=== PATIENT | male | born 1975 | race Caucasian/White ===

== ENCOUNTER 2018-01-04 22:40 | Emergency (ER) | payer MEDICAID ==
[~2018-01-04] VITALS: Ht 172.7 cm; Wt 91.6 kg
[~2018-01-04 22:40] MED LIST: DICL50TA4 PO; METF-370 PO; TRAM50TA2 PO
[2018-01-04 23:17] LABS: Basophils # (auto) 0 uL; Basophils % (auto) 0.2 % (0.0-2.0); Eosinophils # (auto) 0 uL; Eosinophils % (auto) 0.4 % (0.0-7.0); Hematocrit 45.3 % (41.0-53.0); Hemoglobin 15.7 g/dL (13.5-17.5); Lymphocytes # (auto) 0.9 uL; Lymphocytes % (auto) 9.2 % (10.0-50.0); Mean Corpuscular Hgb Conc. 34.6 g/dL (32.0-36.0); Mean Corpuscular Volume 89.8 fL (80.0-100.0); Monocytes # (auto) 0.6 uL; Monocytes % (auto) 5.6 % (0.0-12.0); Neutrophils # (auto) 8.2 uL; Neutrophils % (auto) 84.6 % (37.0-80.0); Nucleated Red Blood Cells % 0.1 %; Platelet Count (auto) 288 10^3/uL (140-450); Red Blood Cells 5.05 10^6/uL (4.5-5.90); Red Cell Distribution Width 13.7 % (11.8-14.3); White Blood Cell 9.8 10^3/uL (4.4-10.8)
[2018-01-04 23:48] LABS: Alanine Aminotransferase 20 U/L (16-61); Albumin 3.7 g/dL (3.4-5.0); Alkaline Phosphatase 82 U/L (45-117); Anion Gap 10 (5-15); Aspartate Aminotransferase 16 U/L (15-37); BUN/Creatinine Ratio 24.1; Bilirubin, Total 0.5 mg/dL (0.2-1.0); Blood Urea Nitrogen 21 mg/dL (7-18); Calcium 8.1 mg/dL (8.5-10.1); Carbon Dioxide 20 mmol/L (21-32); Chloride 103 mmol/L (98-107); GFR African American 123 mL/min; GFR Non-African American 101 mL/min; Glucose 191 mg/dL (74-106); Potassium 3.9 mmol/L (3.5-5.1); Sodium 133 mmol/L (136-145); Total Protein 7.5 g/dL (6.4-8.2)
[2018-01-05] MEDS ORDERED: HYDROcodone-ACET 10/325MG TAB PO ONE ×2 (01:15→04:00)
[2018-01-05] MEDS ORDERED: MORPHINE SULFATE 10 MG/ML INJ 1ML SDV IM ONE (01:45)
[2018-01-05 01:59] LABS: INR 0.92 (0.9-1.15); Partial Thromboplastin Time 27.3 sec (22.64-33.71)
[2018-01-05] MEDS ORDERED: MORPHINE SULFATE 4 MG/ML SYR/VIAL ONE (02:03)
[2018-01-05 04:56] VITALS: BP 125/78
== END 2018-01-05 05:54 | disposition home or self-care (01) ==
LOC: ER 22:40 → EDBD 22:40 → ER 01-05 05:54
DX: S06.9X0A Unspecified intracranial injury without loss of consciousness, initial encounter (principal); G44.319 Acute post-traumatic headache, not intractable; E11.9 Type 2 diabetes mellitus without complications; R07.9 Chest pain, unspecified; R51 Headache; X58.XXXA Exposure to other specified factors, initial encounter; Y93.89 Activity, other specified; Y92.89 Other specified places as the place of occurrence of the external cause; Y99.8 Other external cause status
CPT/HCPCS: 36415; 70450; 71045; 80053; 83735; 83880; 84484; 85025; 85610; 85730; 93005; 94761; 96372; 99285; J2270

== ENCOUNTER 2021-12-01 11:06 | Emergency (ER) | payer SELFPAY ==
[~2021-12-01] VITALS: Ht 180.3 cm; Wt 90.7 kg
[2021-12-01] MEDS ORDERED: ONDANSETRON HCL 4 MG/2 ML VIAL IV ONE (12:45)
[2021-12-01] MEDS ORDERED: HYDROmorphone HCL 2 MG/ML VL IV ONE (12:45)
[2021-12-01 18:14] VITALS: BP 144/87
[2021-12-01] MEDS ORDERED: PERCOT PO (18:17)
== END 2021-12-01 18:13 | disposition home or self-care (01) ==
LOC: EDBD 11:06 → ER 11:06
DX: S46.912A Strain of unspecified muscle, fascia and tendon at shoulder and upper arm level, left arm, initial encounter (principal); E11.9 Type 2 diabetes mellitus without complications; F12.10 Cannabis abuse, uncomplicated; Z88.0 Allergy status to penicillin; Z88.8 Allergy status to other drugs, medicaments and biological substances; V43.52XA Car driver injured in collision with other type car in traffic accident, initial encounter; Y93.89 Activity, other specified; Y92.89 Other specified places as the place of occurrence of the external cause; Y99.8 Other external cause status
CPT/HCPCS: 70450; 73030; 73060; 73090; 73110; 96374; 96375; 99284; J1170; J2405

== ENCOUNTER 2024-06-16 17:35 | Emergency (ER) | payer OTHER ==
[~2024-06-16] VITALS: Ht 180.3 cm; Wt 91.8 kg
[~2024-06-16 17:35] MED LIST changes: +PERCOT PO
[2024-06-16 17:50] VITALS: PULSE 78; RESP 18; O2SAT 97
[2024-06-16] MEDS: HYDROcodone-ACET 5/325MG TAB PO ONE (17:56)
[2024-06-16] MEDS ORDERED: methylPREDNISolone SOD SUCC 125 MG/2 ML VL IM ONE (19:00)
[2024-06-16] MEDS ORDERED: IBUP-1455 PO (19:21)
[2024-06-16 19:30] VITALS: BP 154/94; PULSE 78; RESP 16; TEMP 97.9; O2SAT 98
[2024-06-16] MEDS: methylPREDNISolone SOD SUCC 125 MG/2 ML VL IV ONE (19:48)
== END 2024-06-16 20:14 | disposition home or self-care (01) ==
LOC: ER 17:35
DX: S46.912A Strain of unspecified muscle, fascia and tendon at shoulder and upper arm level, left arm, initial encounter (principal); E11.9 Type 2 diabetes mellitus without complications; F12.10 Cannabis abuse, uncomplicated; Z88.0 Allergy status to penicillin; V43.92XA Unspecified car occupant injured in collision with other type car in traffic accident, initial encounter; Y93.89 Activity, other specified; Y92.488 Other paved roadways as the place of occurrence of the external cause; Y99.8 Other external cause status
CPT/HCPCS: 73000; 73030; 96374; 99284; J2919

== ENCOUNTER 2024-11-30 15:42 | Inpatient (IN) | payer OTHER ==
[~2024-11-30] VITALS: Ht 180.3 cm; Wt 81.8 kg
[~2024-11-30 15:42] MED LIST changes: +IBUP-1455 PO
--- NOTE | 2024-11-30 15:50 | ED.PDOC ---
GI ASSESSMENT HPI Comments 49-year-old male presents with a chief complaint of abdominal pain and diaphoresis. Patient was seen at [facility] and was admitted there for the past x 2 days. While waiting to be transferred for higher level of care, patient reports that he was "upset because the disease case manager was being rude to me" and then decided to leave AMA. Patient has IV intact and wrist band from [facility]. Patient reports that he has a palpable mass to the LUQ and that is causing him significant pain. Patient denies any rectal bleeding, vomiting, nausea, or diarrhea. Patient reports that "Anesthesiology was supposed to do a biopsy and confirm results with oncology". Patient went home and S.O. was contacted who found patient at home with an IV intact and called EMS. No other symptoms or modifying factors present at this time. Chief Complaint: Abdominal Pain Time Seen by MD: 15:38 Primary Care Provider: NONE Reviewed Notes: Medications, Allergies Allergies: Coded Allergies: Penicillins (Unverified Allergy, Intermediate, HIVES, 07/18/10) Ketorolac Tromethamine (Unverified Allergy, Unknown, 04/21/15) Home Meds Active Scripts Ibuprofen Micronized (Ibuprofen) 800 Mg Tab, 800 MG PO TID PRN, #60 TAB Prov:LAVERN SAWYER 06/16/24 Oxycodone W/ Acetaminophen (Percocet 5/325MG) 1 Tab Tb, 1 TAB PO BID, #15 TAB Prov:LILIANA LOPEZ MD 12/01/21 Reported Medications Diclofenac Sodium (Diclofenac Sodium Ec) 50 Mg Tab, PO BID 04/29/13 Tramadol Hcl (Tramadol Hcl) 50 Mg Tab, PO QIDP 04/29/13 Metformin Hydrochloride (Metformin Hcl) 500 Mg Tab, PO DAILY 04/29/13 Information Source: Patient, Emergency Med Personnel Mode of Arrival: EMS Timing: Days Duration: Since onset Prehospital treatment: None Quality: Aching Vomitus: Bilious Stool: Normal Severity: Moderate Recent: None Recent Hx of: None Pain Location: LUQ Past Medical History PAST MEDICAL HISTORY: Anxiety, DM Surgical History: Denies all surgeries Family History Family History: No family hx of Heart janusz Social History Smoker: Non-Smoker Alcohol: Denies ETOH Use Drugs: Marijuana Lives In: Home Constitutional: reports: diaphoresis; denies: chills, fatigue, fever, malaise, sweats, weakness, others EENTM: denies: blurred vision, double vision, ear bleeding, ear discharge, ear drainage, ear pain, ear ringing, eye pain, eye redness, hearing loss, mouth pain, mouth swelling, nasal discharge, nose bleeding, nose congestion, nose pain, photophobia, tearing, throat pain, throat swelling, voice changes, others Respiratory: denies: cough, hemoptysis, orthopnea, SOB at rest, shortness of breath, SOB with excertion, stridor, wheezing, others Cardiovascular: denies: chest pain, dizzy spells, diaphoresis, Dyspnea on exertion, edema, irregular heart beat, left arm pain, lightheadedness, palpitations, PND, syncope, others Gastrointestinal: reports: abdominal pain; denies: abdomen distended, blood streaked bowels, constipated, diarrhea, dysphagia, difficulty swallowing, hematemesis, melena, nausea, poor appetite, poor fluid intake, rectal bleeding, rectal pain, vomiting, others Genitourinary: denies: burning, dysuria, flank pain, frequency, hematuria, incontinence, penile discharge, penile sore, pain, testicle pain, testicle swelling, urgency, others Neurological: denies: dizziness, fainting, headache, left sided numbness, left sided weakness, numbness, paresthesia, pre-existing deficit, right sided numbness, right sided weakness, seizure, speech problems, tingling, tremors, weakness, others Musculoskeletal: denies: back pain, gout, joint pain, joint swelling, muscle pain, muscle stiffness, neck pain, others Integumetry: denies: bruises, change in color, change in hair/nails, dryness, laceration, lesions, lumps, rash, wounds, others Allergic/Immunocompromised: denies: Difficulty Healing, Frequent Infections, Hives, Itching, others Hematologic/Lymphatic: denies: anemia, blood clots, easy bleeding, easy bruising, swollen glands, others Endocrine: denies: excessive hunger, excessive sweating, excessive thirst, excessive urination, flushing, intolerance to cold, intolerance to heat, unexplained weight gain, unexplained weight loss, others Psychiatric: denies: anxiety, bipolar disorder, depression, hopeless, panic disorder, schizophrenia, sleepless, suicidal, others All Other Systems: Reviewed and Negative Physical Exam General Appearance: Moderate Distress, Normal, Other (DIAPHORECTIC ) HEENT: Normal ENT Inspection, Pharynx Normal, TMs Normal Neck: Full Range of Motion, Non-Tender, Normal, Normal Inspection Respiratory: Chest Non-Tender, Lungs Clear, No Accessory Muscle Use, No Respir atory Distress, Normal Breath Sounds Cardiovascular: No Edema, No JVD, No Murmur, No Gallop, Normal Peripheral Pulses, Regular Rate/Rhythm Breast Exam: Deferred Gastrointestinal: LUQ, Mass (PALPABLE MASS IN LUQ), Tenderness Genitalia: Deferred Pelvic: Deferred Rectal: Deferred Extremities: No calf tenderness, Normal capillary refill, Normal inspection, Normal range of motion, Non-tender, No pedal edema Musculoskeletal : Apperance: Normal Neurologic: Alert, vibration engineer II-XII nml as Tested, No Motor Deficits, Normal Affect, Normal Mood, No Sensory Deficits Cerebellar Function: Normal Reflexes: Normal Skin: Dry, Normal Color, Warm Lymphatic: No Adenopathy Was a procedure done? Was a procedure done?: No GI differential Dx Differential Diagnosis: AAA, Bowel Obstruction, Cholecystitis, Constipation, Diverticular disease, Gastroenteritis, Hernia, Inflammatory BD, Pancreatitis, Impaction, Mass X-Ray, Labs, Meds, VS Vital Signs Date Time Temp Pulse Resp B/P (MAP) Pulse Ox O2 Delivery O2 Flow Rate FiO2 11/30/24 16:46 90 17 115/74 11/30/24 16:21 97.8 83 17 113/6 (41) 99 97.8 11/30/24 16:20 Room Air* 0 21 11/30/24 16:16 80 17 113/60 11/30/24 15:44 97.8 92 20 149/100 (116) 97 11/30/24 15:44 97.8 92 20 149/100 (116) 97 97.8 11/30/24 15:44 Room Air* 0 21 Lab Test 11/30/24 16:11 Range/Units White Blood Count 9.9 4.4-10.8 10^3/uL Red Blood Count 4.91 4.5-5.90 10^6/uL Hemoglobin 14.7 13.5-17.5 g/dL Hematocrit 43.2 41.0-53.0 % Mean Corpuscular Volume 88.0 80.0-100.0 fL Mean Corpuscular Hemoglobin 29.9 28.0-32.0 pg Mean Corpuscular Hemoglobin Concent 34.0 32.0-36.0 g/dL Red Cell Distribution Width 13.4 11.8-14.3 % Platelet Count 399 140-450 10^3/uL Mean Platelet Volume 8.4 6.9-10.8 fL Neutrophils (%) (Auto) 75.7 37.0-80.0 % Lymphocytes (%) (Auto) 14.3 10.0-50.0 % Monocytes (%) (Auto) 6.7 0.0-12.0 % Eosinophils (%) (Auto) 2.8 0.0-7.0 % Basophils (%) (Auto) 0.5 0.0-2.0 % Neutrophils # (Auto) 7.5 1.6-8.6 10 ^3/uL Lymphocytes # (Auto) 1.4 0.4-5.4 10 ^3/uL Monocytes # (Auto) 0.7 0-1.3 10 ^3/uL Eosinophils # (Auto) 0.3 0-0.8 10 ^3/uL Basophils # (Auto) 0 0-0.2 10 ^3/uL Nucleated Red Blood Cells 0.1 % Sodium Level 136 136-145 mmol/L Potassium Level 4.6 3.5-5.1 mmol/L Chloride Level 99 98-107 mmol/L Carbon Dioxide Level 27 20-31 mmol/L Anion Gap 10 5-15 Blood Urea Nitrogen 18 9-23 mg/dL Creatinine 1.09 0.700-1.30 mg/dL Glomerular Filtration Rate Calc 82 >90 mL/min BUN/Creatinine Ratio 16.5 10.0-20.0 Serum Glucose 218 H 74-106 mg/dL Calcium Level 10.5 H 8.7-10.4 mg/dL Total Bilirubin 0.4 0.2-1.0 mg/dL Aspartate Amino Transferase (AST) 52 H 13-40 U/L Alanine Aminotransferase (ALT) 24 7-40 U/L Alkaline Phosphatase 165 H 46-116 U/L Total Protein 7.7 5.7-8.2 g/dL Albumin 4.9 H 3.2-4.8 g/dL Current Medications Medications (Trade) Dose Ordered Sig/Coty Route Start Time Stop Time Status Last Admin Hydromorphone HCl (Dilaudid Injection) 1 mg ONCE ONCE IV 11/30/24 16:00 11/30/24 16:01 DC 11/30/24 16:16 Ondansetron HCl (Zofran) 4 mg ONCE ONCE IV 11/30/24 16:00 11/30/24 16:01 DC 11/30/24 16:16 49-year-old male presents here for abdominal mass. He states he was just admitted upstairs in a room in his [facility] however the disease case manager came to him and advised him that no biopsy was going to be done today and they he needed higher level of care and could drive himself. Patient became very upset as to how rude the disease case manager was and left. He does state that he had a CT done with contrast at [facility]. Patient did go home however due to a having an IV, [employer]'s Department was called. [employer] Site Drilling Engineer's department team and ultimately EMS was called and patient was brought to [facility]. At this time I attempted to obtain records from [facility] and they advised me they would fax me the CT report however I have not received it yet. At this time there is a palpable mass on patient's abdomen. Concern for carcinoma. His alk phos does support this as his alk-phos is high at 165 and mild elevation in his his calcium. Blood work otherwise is largely unremarkable. Does have mildly elevated glucose levels. At this time consult has been placed to Dr. Estrella for admission. Time of 1ST Reevaluation: 16:08 Reevaluation 1ST: Unchanged Patient Education/Counseling: Diagnosis, Treatment, Prognosis Family Education/Counseling: Diagnosis, Treatment, Prognosis Departure 1 Departure Time of Disposition: 16:38 Impression: Primary Impression: Abdominal mass, left upper quadrant Disposition: ADMITTED INPATIENT Admit to: Med Surg Condition: Fair Critical Care Note Critical Care Time?: No I personally scribed for IRAM REEVES MD ([email or web address]) on 11/30/24 at 15:50. Electronically submitted by To Calabrese ([email or web address]). I personally scribed for IRAM REEVES MD ([email or web address]) on 11/30/24 at 16:21. Electronically submitted by To Calabrese [email or web address]). IRAM REEVES MD Nov 30, 2024 15:50
[2024-11-30] MEDS: ONDANSETRON HCL 4 MG/2 ML VIAL IV ONE (16:16)
[2024-11-30] MEDS: HYDROmorphone HCL 2 MG/ML VL/or syr IV ONE (16:16)
[2024-11-30 16:24] LABS: Basophils # (auto) 0 10 ^3/uL (0-0.2); Basophils % (auto) 0.5 % (0.0-2.0); Eosinophils # (auto) 0.3 10 ^3/uL (0-0.8); Eosinophils % (auto) 2.8 % (0.0-7.0); Hematocrit 43.2 % (41.0-53.0); Hemoglobin 14.7 g/dL (13.5-17.5); Lymphocytes # (auto) 1.4 10 ^3/uL (0.4-5.4); Lymphocytes % (auto) 14.3 % (10.0-50.0); Mean Corpuscular Hemoglobin 29.9 pg (28.0-32.0); Monocytes # (auto) 0.7 10 ^3/uL (0-1.3); Monocytes % (auto) 6.7 % (0.0-12.0); Neutrophils # (auto) 7.5 10 ^3/uL (1.6-8.6); Neutrophils % (auto) 75.7 % (37.0-80.0); Nucleated Red Blood Cells % 0.1 %; Platelet Count (auto) 399 10^3/uL (140-450); Red Blood Cells 4.91 10^6/uL (4.5-5.90); Red Cell Distribution Width 13.4 % (11.8-14.3); White Blood Cell 9.9 10^3/uL (4.4-10.8)
[2024-11-30 16:51] LABS: Alanine Aminotransferase 24 U/L (7-40); Anion Gap 10 (5-15); BUN/Creatinine Ratio 16.5 (10.0-20.0); Bilirubin, Total 0.4 mg/dL (0.2-1.0); Blood Urea Nitrogen 18 mg/dL (9-23); Carbon Dioxide 27 mmol/L (20-31); Chloride 99 mmol/L (98-107); Potassium 4.6 mmol/L (3.5-5.1); Total Protein 7.7 g/dL (5.7-8.2)
[2024-11-30 16:53] LABS: Albumin 4.9 g/dL (3.2-4.8); Alkaline Phosphatase 165 U/L (46-116); Aspartate Aminotransferase 52 U/L (13-40); Calcium 10.5 mg/dL (8.7-10.4); Glucose 218 mg/dL (74-106); Sodium 136 mmol/L (136-145)
[2024-11-30] MEDS ORDERED: DEXTROSE (50%) 50ML SYRG IV PRN (17:30)
[2024-11-30] MEDS ORDERED: OXYCODONE W/ ACETAMINOPHEN 5/325MG TABLET PO PRN (17:30)
[2024-11-30] MEDS ORDERED: ONDANSETRON HCL 4 MG/2 ML VIAL IV PRN (17:30)
[2024-11-30] MEDS ORDERED: NITROGLYCERIN 0.4 MG SL TAB SL PRN (17:30)
[2024-11-30] MEDS ORDERED: TEMAZEPAM 15 MG CAP PO PRN (17:30)
[2024-11-30] MEDS ORDERED: MORPHINE SULFATE INJ 2 MG/ml SYRG IV PRN (17:30)
--- NOTE | 2024-11-30 17:34 | DVHHP2 ---
Admitting Diagnosis: Abdominal pain History of Present Illness 49 year old male is complaining of abdominal pain. Patient reports mass to left upper quadrant as well. He states he was seen at [facility] and was admitted for two days but left AMA before being transferred to high level of care due to correctional counselor/case manager being rude. While in the emergency department the patient was evaluated by the provider. Patient will be admitted for further evaluation and treatment. I discussed admission with the patient/family and is in agreement to treatment plan. Allergies: Coded Allergies: Penicillins (Unverified Allergy, Intermediate, HIVES, 07/18/10) Ketorolac Tromethamine (Unverified Allergy, Unknown, 04/21/15) Home Meds Active Scripts Oxycodone W/ Acetaminophen (Percocet 5/325MG) 1 Tab Tb, 1 TAB PO TIDP PRN for 7 Days, #21 TAB Prov:FLORENCE GALLO OFFAL SEPARATOR 12/01/24 Ibuprofen Micronized (Ibuprofen) 800 Mg Tab, 800 MG PO TID PRN, #60 TAB Prov:LAVERN SAWYER 06/16/24 Reported Medications Diclofenac Sodium (Diclofenac Sodium Ec) 50 Mg Tab, PO BID 04/29/13 Tramadol Hcl (Tramadol Hcl) 50 Mg Tab, PO QIDP 04/29/13 Metformin Hydrochloride (Metformin Hcl) 500 Mg Tab, PO DAILY 04/29/13 Current Medications Current Medications Medications (Trade) Dose Ordered Sig/Coty Route PRN Reason Start Time Stop Time Status Last Admin Enoxaparin Sodium (Lovenox) 40 mg DAILY SC 12/01/24 10:00 12/01/24 11:10 DC Diagnostic Test (Pha) (Accu-Chek Comfort Curve T) 1 strip ACHS 11/30/24 22:00 12/01/24 11:10 DC 12/01/24 06:47 Insulin Human Regular (InsuLIN R) HS SC 11/30/24 22:00 12/01/24 11:10 DC 11/30/24 22:55 Insulin Human Regular (InsuLIN R) AC SC 12/01/24 07:00 12/01/24 11:10 DC 12/01/24 06:47 Pantoprazole Sodium (Protonix) 40 mg DAILY IV 12/01/24 10:00 12/01/24 11:10 DC 12/01/24 09:38 Review of Systems Abdominal pain Vital Signs Vital Signs Date Time Temp Pulse Resp B/P (MAP) Pulse Ox O2 Delivery O2 Flow Rate FiO2 12/01/24 10:19 97.9 81 16 139/74 (95) 97 97.9 11/30/24 16:20 Room Air* 0 21 Physical Exam General Appearance: alert, no distress HEENT: EOMI, PERRLA, normal external inspect of ears, no icterus, no nasal drainage Neck: no carotid bruit, no jugular venous distention (JVD), no lymphadenopathy Chest: normal thorax Respiratory: clear to auscultation, normal air movement Cardiovascular: regular rate and rhythm, no diastolic murmur, no jugular venous distention (JVD), no rub, no systolic murmur Abdominal: soft, no hepatomegaly, no mass, no splenomegaly, no tenderness Musculoskeletal: no joint tenderness, no swelling Extremities: normal pulses, no calf tenderness, no clubbing, no cyanosis, no edema Skin: no bruising, no jaundice, no rash Neurological: alert, No focal deficit Results Labs Test 12/01/24 06:40 12/01/24 05:49 Range/Units POC Glucose 149 H 70-106 mg/dl White Blood Count 7.8 4.4-10.8 10^3/uL Red Blood Count 4.59 4.5-5.90 10^6/uL Hemoglobin 13.5 13.5-17.5 g/dL Hematocrit 40.6 L 41.0-53.0 % Mean Corpuscular Volume 88.6 80.0-100.0 fL Mean Corpuscular Hemoglobin 29.5 28.0-32.0 pg Mean Corpuscular Hemoglobin Concent 33.3 32.0-36.0 g/dL Red Cell Distribution Width 13.4 11.8-14.3 % Platelet Count 341 140-450 10^3/uL Mean Platelet Volume 8.3 6.9-10.8 fL Neutrophils (%) (Auto) 67.2 37.0-80.0 % Lymphocytes (%) (Auto) 20.0 10.0-50.0 % Monocytes (%) (Auto) 8.3 0.0-12.0 % Eosinophils (%) (Auto) 3.7 0.0-7.0 % Basophils (%) (Auto) 0.8 0.0-2.0 % Neutrophils # (Auto) 5.2 1.6-8.6 10 ^3/uL Lymphocytes # (Auto) 1.6 0.4-5.4 10 ^3/uL Monocytes # (Auto) 0.6 0-1.3 10 ^3/uL Eosinophils # (Auto) 0.3 0-0.8 10 ^3/uL Basophils # (Auto) 0.1 0-0.2 10 ^3/uL Nucleated Red Blood Cells 0.0 % Sodium Level 138 136-145 mmol/L Potassium Level 4.1 3.5-5.1 mmol/L Chloride Level 103 98-107 mmol/L Carbon Dioxide Level 24 20-31 mmol/L Anion Gap 11 5-15 Blood Urea Nitrogen 18 9-23 mg/dL Creatinine 0.89 0.700-1.30 mg/dL Glomerular Filtration Rate Calc 104 >90 mL/min BUN/Creatinine Ratio 20.2 H 10.0-20.0 Serum Glucose 152 H 74-106 mg/dL Calcium Level 9.8 8.7-10.4 mg/dL Total Bilirubin 0.6 0.2-1.0 mg/dL Aspartate Amino Transferase (AST) 52 H 13-40 U/L Alanine Aminotransferase (ALT) 21 7-40 U/L Alkaline Phosphatase 148 H 46-116 U/L Total Protein 7.1 5.7-8.2 g/dL Albumin 4.5 3.2-4.8 g/dL Primary Diagnosis Intractable abdominal pain- most likely related to liver masses GI consult, PRN pain medications, monitoring Liver masses Oncology consult, monitoring DM II with hypoglycemia Diet, medications, monitoring Elevated liver enzymes monitoring, medications Plan discussed with: Patient, Other FLORENCE GALLO NP Nov 30, 2024 17:34
[2024-11-30] MEDS: ACCU-CHEK COMFORT CURVE STRIP VI SCH (22:50)
[2024-11-30] MEDS: InsuLIN REG 1unit/0.01ml Soln (100units/ml) SC SCH (22:55)
[2024-11-30] MEDS: HYDROMORPHONE HCL 1 MG/ML INJ IV PRN (23:10)
[2024-12-01] VITALS: BP 125/78; PULSE 75; RESP 18; TEMP 97.9; O2SAT 94
[2024-12-01 05:00] VITALS: BP 113/68; PULSE 71; RESP 12; TEMP 97.8; O2SAT 97
[2024-12-01 06:14] LABS: Basophils # (auto) 0.1 10 ^3/uL (0-0.2); Basophils % (auto) 0.8 % (0.0-2.0); Eosinophils # (auto) 0.3 10 ^3/uL (0-0.8); Eosinophils % (auto) 3.7 % (0.0-7.0); Hematocrit 40.6 % (41.0-53.0); Hemoglobin 13.5 g/dL (13.5-17.5); Lymphocytes # (auto) 1.6 10 ^3/uL (0.4-5.4); Mean Corpuscular Hemoglobin 29.5 pg (28.0-32.0); Mean Corpuscular Hgb Conc. 33.3 g/dL (32.0-36.0); Mean Corpuscular Volume 88.6 fL (80.0-100.0); Monocytes # (auto) 0.6 10 ^3/uL (0-1.3); Monocytes % (auto) 8.3 % (0.0-12.0); Neutrophils # (auto) 5.2 10 ^3/uL (1.6-8.6); Neutrophils % (auto) 67.2 % (37.0-80.0); Platelet Count (auto) 341 10^3/uL (140-450); Red Blood Cells 4.59 10^6/uL (4.5-5.90); Red Cell Distribution Width 13.4 % (11.8-14.3); White Blood Cell 7.8 10^3/uL (4.4-10.8)
[2024-12-01 06:26] LABS: Alanine Aminotransferase 21 U/L (7-40); Albumin 4.5 g/dL (3.2-4.8); Alkaline Phosphatase 148 U/L (46-116); Anion Gap 11 (5-15); Aspartate Aminotransferase 52 U/L (13-40); BUN/Creatinine Ratio 20.2 (10.0-20.0); Bilirubin, Total 0.6 mg/dL (0.2-1.0); Blood Urea Nitrogen 18 mg/dL (9-23); Calcium 9.8 mg/dL (8.7-10.4); Carbon Dioxide 24 mmol/L (20-31); Chloride 103 mmol/L (98-107); Glucose 152 mg/dL (74-106); Potassium 4.1 mmol/L (3.5-5.1); Sodium 138 mmol/L (136-145); Total Protein 7.1 g/dL (5.7-8.2)
[2024-12-01] MEDS: InsuLIN REG 1unit/0.01ml Soln (100units/ml) SC SCH (06:47)
--- NOTE | 2024-12-01 07:40 | DVHPN2 ---
Progress Note - Dictate vital signs Vital Sign Date Time Temp Pulse Resp B/P (MAP) Pulse Ox O2 Delivery O2 Flow Rate FiO2 12/01/24 04:27 71 12 113/68 12/01/24 00:00 97.9 94 97.9 11/30/24 16:20 Room Air* 0 21 medications Current Medications Medications Dose Ordered Sig/Coty Route Start Time Stop Time Status Last Admin Dose Admin Temazepam 15 mg QHSP PRN PO 11/30/24 17:30 Ondansetron HCl 4 mg Q4HP PRN IV 11/30/24 17:30 Enoxaparin Sodium 40 mg DAILY SC 12/01/24 10:00 Hydromorphone HCl 1 mg Q4HP PRN IV 11/30/24 17:30 12/01/24 03:57 1 MG Oxycodone/ Acetaminophen 1 tab Q4HPRN PRN PO 11/30/24 17:30 Nitroglycerin 0.4 mg Q5MINP PRN SL 11/30/24 17:30 Morphine Sulfate 2 mg Q30M PRN IV 11/30/24 17:30 Diagnostic Test (Pha) 1 strip ACHS 11/30/24 22:00 12/01/24 06:47 1 STRIP Insulin Human Regular HS SC 11/30/24 22:00 11/30/24 22:55 8 UNITS Insulin Human Regular AC SC 12/01/24 07:00 12/01/24 06:47 2 UNITS Dextrose 50 ml UD PRN IV 11/30/24 17:30 laboratory and microbiology Laboratory Tests 12/01/24 05:49 Test 12/01/24 05:49 Range/Units Serum Glucose 152 H 74-106 mg/dL FLORENCE GALLO NP Dec 01, 2024 07:40
[2024-12-01 09:05] VITALS: BP 137/79; PULSE 89; RESP 16; TEMP 97.8; O2SAT 97
[2024-12-01] MEDS: PANTOPRAZOLE 40 MG/10 ML VIAL INJ IV SCH (09:38)
[2024-12-01] MEDS: ENOXAPARIN SOD 40 MG/0.4 ML SYRINGE SC SCH (09:39)
[2024-12-01] MEDS ORDERED: PERCOT PO (09:59)
[2024-12-01 10:19] VITALS: BP 139/74; PULSE 81; RESP 16; TEMP 97.9; O2SAT 97
--- NOTE | 2024-12-01 18:16 | DVHDS2 ---
Discharge Summary Date of Admission Nov 30, 2024 at 17:29 Date of Discharge: Dec 01, 2024 Labs/Diagnostic Data: Laboratory Results Test 12/01/24 06:40 12/01/24 05:49 POC Glucose 149 mg/dl (70-106) White Blood Count 7.8 10^3/uL (4.4-10.8) Red Blood Count 4.59 10^6/uL (4.5-5.90) Hemoglobin 13.5 g/dL (13.5-17.5) Hematocrit 40.6 % (41.0-53.0) Mean Corpuscular Volume 88.6 fL (80.0-100.0) Mean Corpuscular Hemoglobin 29.5 pg (28.0-32.0) Mean Corpuscular Hemoglobin Concent 33.3 g/dL (32.0-36.0) Red Cell Distribution Width 13.4 % (11.8-14.3) Platelet Count 341 10^3/uL (140-450) Mean Platelet Volume 8.3 fL (6.9-10.8) Neutrophils (%) (Auto) 67.2 % (37.0-80.0) Lymphocytes (%) (Auto) 20.0 % (10.0-50.0) Monocytes (%) (Auto) 8.3 % (0.0-12.0) Eosinophils (%) (Auto) 3.7 % (0.0-7.0) Basophils (%) (Auto) 0.8 % (0.0-2.0) Neutrophils # (Auto) 5.2 10 ^3/uL (1.6-8.6) Lymphocytes # (Auto) 1.6 10 ^3/uL (0.4-5.4) Monocytes # (Auto) 0.6 10 ^3/uL (0-1.3) Eosinophils # (Auto) 0.3 10 ^3/uL (0-0.8) Basophils # (Auto) 0.1 10 ^3/uL (0-0.2) Nucleated Red Blood Cells 0.0 % Sodium Level 138 mmol/L (136-145) Potassium Level 4.1 mmol/L (3.5-5.1) Chloride Level 103 mmol/L (98-107) Carbon Dioxide Level 24 mmol/L (20-31) Anion Gap 11 (5-15) Blood Urea Nitrogen 18 mg/dL (9-23) Creatinine 0.89 mg/dL (0.700-1.30) Glomerular Filtration Rate Calc 104 mL/min (>90) BUN/Creatinine Ratio 20.2 (10.0-20.0) Serum Glucose 152 mg/dL (74-106) Calcium Level 9.8 mg/dL (8.7-10.4) Total Bilirubin 0.6 mg/dL (0.2-1.0) Aspartate Amino Transferase (AST) 52 U/L (13-40) Alanine Aminotransferase (ALT) 21 U/L (7-40) Alkaline Phosphatase 148 U/L (46-116) Total Protein 7.1 g/dL (5.7-8.2) Albumin 4.5 g/dL (3.2-4.8) Other Laboratory Tests 12/01/24 05:49 Brief Hx & Hospital Course: 49 year old male is complaining of abdominal pain. Patient reports mass to left upper quadrant as well. He states he was seen at [facility] and was admitted for two days but left AMA before being transferred to high level of care due to case planner being rude. While in the emergency department the patient was evaluated by the provider. Patient was admitted on 11/30/2024 for intractable abdominal pain related to liver masses. Patient was diagnosed with liver masses in September 2024. Patient states he has been unable to get an appointment with oncology. Patient is upset stating he does not understand why he can not be transferred to a tertiary center for further work up. I did instruct patient he will need a referral from his PCP for oncology work up. Patient is unwilling to stay for oncology to see him in am. Patient was instructed to follow up with their PCP in one week. The patient received proper medical treatment and medications. Vital signs, Imaging and Laboratory Work was monitored. All consults recommendations were followed as provided. There were no complaints or new complaints upon discharge, all questions and concerns were answered. Patient was advised to return to the ER or call 911 if any headaches, dizziness, shortness of breath, chest pain, bleeding, fevers, or worsening of medical condition. Patient/Family was counseled about treatment plan, medications, possible side effects, patientverbalized understanding. All questions were answered to the best of my ability. The patient symptoms improved and they are okay to be DC. Condition at Discharge: Good Final Diagnosis/Problems List Abdominal pain related to liver masses undiagnosed at this time- waiting for oncology Liver masses DM II with hypoglycemia Elevated live enzymes Discharge Disposition: Home Discharge Instruct/Medications Diet: Cardiac 2g Na,low cholest Activity: No Restrictions, As Tolerated Follow Up/Referral: pcp [facility] as soon as possible Discharge Statement: "Patient was advised to return to the ER or call 911 if any headaches, dizziness, shortness of breath, chest pain, abdominal pain, bleeding, fevers, or worsening of medical condition. Patient was counseled about treatment plan, medications, possible side effects, patientverbalized understanding. All questions were answered to the best of my ability. This discharge took greater then 30 minutes in planning, reviewing documentation, counseling the patient, and discussing with other team members." ASSESSMENT ASSESSMENT Assessment Abdominal pain related to liver masses undiagnosed at this time- waiting for oncology FLORENCE GALLO NP Dec 01, 2024 18:16
== END 2024-12-01 10:50 | disposition left against medical advice (07) ==
LOC: EDUNIT# 15:42 → EDBD 15:42 → ER 15:42 → OVERFLOW 17:29
PROVIDERS: ADMIT Nurse Practitioner; ATTEND Nurse Practitioner
DX: R16.0 Hepatomegaly, not elsewhere classified (principal); F41.9 Anxiety disorder, unspecified; Z53.29 Procedure and treatment not carried out because of patient's decision for other reasons; R74.8 Abnormal levels of other serum enzymes; Z88.0 Allergy status to penicillin; Z88.8 Allergy status to other drugs, medicaments and biological substances; Z79.899 Other long term (current) drug therapy; Z79.84 Long term (current) use of oral hypoglycemic drugs
CPT/HCPCS: 36415; 80053; 82962; 85025; 96374; 96375; G0378; J1815; J2405; J2470